=== PATIENT | female | born 1950 | race Caucasian/White ===

== ENCOUNTER 2025-01-10 22:06 | Inpatient (IN) | payer OTHER, SELFPAY ==
[2025-01-10] VITALS (7 sets, daily range): BP systolic 111–152; BP diastolic 66–93; PULSE 81–93; BMI 19.6; BMI 18.9
[2025-01-10 14:00] LABS: Hematocrit 36.1 % (37.0-47.0); Hemoglobin 11.9 g/dL (12.0-16.0); Mean Corp Hgb Conc. 33.0 g/dL (33.0-37.0); Mean Corpuscular Volume 94.3 fL (81.0-99.0); Nucleated Red Blood Cells % 0 %; Platelet Count 150 10^3/uL (130-400); Red Cell Dist. Width 13.5 % (11.5-14.5)
[2025-01-10 14:14] LABS: INR 0.90; PT 12.7 Sec (11.4-14.6)
[2025-01-10 14:25] LABS: ALT (SGPT) 84 U/L (0-35); AST (SGOT) 104 U/L (14-36); Albumin 4.3 g/dl (3.5-5.0); Alkaline Phosphatase 112 U/L (38-126); Blood Urea Nitrogen 16 mg/dl (7-17); Calcium 9.1 mg/dl (8.4-10.2); Carbon Dioxide 25 mmol/L (22-30); Chloride 106 mmol/L (98-107); Glucose 194 mg/dl (70-99); Potassium 4.2 mmol/L (3.5-5.1); Sodium 139 mmol/L (135-145); Total Protein 9.0 g/dl (6.3-8.2); eGFR > 60.00
--- NOTE | 2025-01-10 16:45 | ED.GENMED ---
History of Present Illness
General
Chief Complaint: Rectal Bleeding
Source: patient
Exam Limitations: none
Time Seen by Provider: 01/10/25 16:05
History of Present Illness
History of Present Illness:
74yoF with a history of hypertension and rectal cancer in 2019 s/p chemo/radiation presenting for evaluation of rectal bleeding x 3 days. Patient reports passing bright red blood per rectum with 'dark cranberry clots' for the past several days.
Last episode of bleeding was around 1 AM this morning. She also has been experiencing generalized weakness and fatigue. She reports some mild right-sided abdominal but denies any overt pain. No dizziness, syncope, shortness of breath. She does
not take any blood thinners. Last colonoscopy was in 2019.
Past History
Past History
ED Past Medical History: Other (Breast cancer in 1990 with lumpectomy radiation chemotherapy, cataract surgery, previous oral surgery with removal of her teeth.)
Social History
Tobacco: Smoker
Alcohol: Occasional
Family History
Family History: Other (mother with uterine cancer father with IN)
Phy Exam
General Physical Exam
General Presentation: well appearing and no apparent distress
General Skin: warm and dry
General Habitus: normal and elderly
General Mental: alert
ENT Exam
ENT Exam: normocephalic
Cardiovascular Exam
Cardiovascular Exam: regular rate/rhythm
Pulmonary Exam
Pulmonary Exam: lungs clear, no respiratory distress, no rales, no crackles, no rhonchi and no wheezing
Gastrointestinal Exam
Gastrointestinal Exam: soft, non distended and other (Mild right-sided abdominal tenderness)
Stool: maroon and other (Stool maroon-colored. Heme positive.)
Neurological Exam
Neurological Exam: alert
Hutchinson Coma Scale
Eye Opening: Spontaneous
Verbal Response: Oriented
Motor Response: Obeys Commands
GCS Total Score: 15
Skin Exam
Skin Exam: normal color and warm/dry
Psychiatric Exam
Psychiatric Exam: normal mood/affect
Course
Orders/Labs/Results
Orders:
Orders
01/10/25 13:54
Type And Crossmatch [Type+Screen] Urgent
Complete Blood Count/With Diff Urgent
Comprehensive Metabolic Panel Urgent
Prothrombin Time Urgent
01/10/25 Dinner
Clear Liquid
At Your Request: Full Participation
01/10/25 16:45
CT Abd/pel W Iv And Oral Contr Urgent
Comment:
Reason For Exam: R sided abd pain, rectal bleeding
Iohexol [Omnipaque] See Protocol PO NOW STA
01/10/25 17:31
ABO2 Urgent
BBK Wristband Number:
Associate notified that ABO2 has been ordered: Y
Date: 01/10/25
Time: 14:03
Production Support Manager ID: [id number]
Lactate Level [Lactic Acid] Urgent
01/10/25 21:41
Admit/Transfer Patient As Directed
Co-Sign Provider:
Level of Care: Inpatient admission
Assign to:: Telemetry
Physician / Group: Bran
Diagnosis: Rectal bleeding
Reason for Telemetry: Other
Other Reason for Telemetry: GI bleed
Date to Stop Telemetry: 01/12/25
Time to Stop Telemetry: 11:00
Reason for Hospitalization: rectal bleeding
Expected length of stay greater than two midnights?: Yes
ELOS- Estimated Length of Stay in days: 2
I certify the patient meets the requirements for IP care: Yes
PRN Pain Medication Management As Directed
May give lesser potent ordered pain med per pt: Yes
preference::
Protocol:: Medication orders for pain may be administered in a
manner that supports deferring to patient preference
when the pt is:
- Requesting an ordered lesser potent pain medication.
Least to most potent pain medications are defined
as: acetaminophen < NSAID < tramadol < opioids
(morphine, oxycodone, hydromorphone).
- Requesting a lesser dose of the same medication IF
ORDERED.
- Requesting a less intrusive route of administration
if both routes are prescribed by the provider (PO <
IV).
01/10/25 21:42
Code Status As Directed
Resuscitation Status: Full Code
01/10/25 22:55
Acetaminophen [Tylenol] 650 mg PO Q6HPRN PRN
Dextrose 5%/0.45%Sodchl 1000ML [D5/0.45%NaCl] 1,000 ml IV 75 mls/hr
Ondansetron Injectable [Zofran] 4 mg IV Q6HPRN PRN
01/10/25 22:55
MRI Abdomen [MR Abdomen W/o & W Contrast] Routine
Comment:
Reason For Exam: liver mass evalaution
Recent pill cam endoscopy?: No
Activity As Directed
Activity Level: With Assistance
INT (Intravenous Needle Therapy) As Directed
Comment: Place 2 IV catheters of the largest bore possible until stable
Orthostatic Vital Signs As Directed
Orthostatic VS Frequency: Now
Comment: then every four hours for twenty-four hours
Pneumatic Compression Sleeves As Directed
Type: Knee high
Vital Signs As Directed
Frequency: Per unit guidelines
DX Deep Vein Thrombosis Video Routine
01/11/25 06:00
AFP Male/Tumor Marker IN AM
Basic Metabolic Panel IN AM
CA 19-9 [S] IN AM
CEA IN AM
Complete Blood Count/No Diff IN AM
Prothrombin Time IN AM
01/11/25 14:00
H&H Q8H
01/12/25 11:00
DC Protocol for Telemetry ONCE
Abnormal Lab Results
01/10/25
13:54
RBC 3.83 L 10^6/uL
(4.20-5.40)
Hgb 11.9 L g/dL
(12.0-16.0)
Hct 36.1 L %
(37.0-47.0)
MCH 31.1 H pg
(27.0-31.0)
Absolute Lymphs (auto) 1.0 L 10^3/uL
(1.2-3.4)
Lymphocytes % 16.8 L %
(20.5-51.1)
Glucose 194 H mg/dl
(70-99)
AST 104 H U/L
(14-36)
ALT 84 H U/L
(0-35)
Total Protein 9.0 H g/dl
(6.3-8.2)
01/10/25 13:54
01/10/25 13:54
Vital Signs
Initial and Last Documented VS:
Initial Vital Signs
Temp Pulse Resp BP Pulse Ox
98.5 F 111 16 152/93 98
01/10/25 13:43 01/10/25 13:43 01/10/25 13:43 01/10/25 13:43 01/10/25 13:43
Last Documented Vital Signs
Temp Pulse Resp BP Pulse Ox
98.6 F 81 14 123/71 94
01/10/25 23:36 01/10/25 23:36 01/10/25 23:36 01/10/25 23:36 01/10/25 23:36
MDM/Problems Addressed
Differential Diagnosis Includes:
74yoF here with rectal bleeding x 2 days. C/o generalized weakness. Hx of rectal cancer >5 years ago in remission. No blood thinners. HR 111 in triage. She is non-toxic appearing. Stool is maroon colored on exam and hemoccult positive. Differential
diagnosis includes but is not limited to: Hemorrhoidal bleed, diverticular bleed, malignancy, blood loss anemia
Initial ED plan: Labs obtained in triage. Hemoglobin mildly low at 11.9. Mild transaminitis noted which is consistent with prior labs. Will check lactate and CT abdomen.
*Pulse Oximetry
SaO2: 98
Oxygen Mode of Delivery: Room air
Patient hypoxic: no (98%)
*Critical Care Note
Total Time (30-74mins, 75-104mins- exclusive of procedures): Not Applicable
Update Note
Update Note:
CT shows liver lesions highly concerning for malignancy. There is wall thickening in the lower rectum which may be sequelae of prior radiation although new rectal mass is possible. Patient admitted for further evaluation and management.
ED Attending Note
-
Portions of this chart may have been created with voice recognition software.� Occasional wrong word or��sound alike� substitutions may have occurred due to the inherent limitations of voice recognition software.
Discharge Plan
Departure
Patient Disposition: Admit
Date of Disposition: 01/10/25
Time of Disposition: 21:17
Presentation/result/management discussed w/ accepting MD/DO: Hospitalist
Discharge Problem:
Rectal bleeding, Lesion of liver
Interventions
Interventions:
*Risk Screen - Suicide Last Done: 01/10/25 13:43
*General Assessment Last Done: 01/10/25 13:43
*Neglect/Abuse Screening Last Done: 01/10/25 13:43
*ED- Fall Risk Assessment Last Done: 01/10/25 13:43
*ED COVID-19 Vaccine History Last Done: 01/10/25 13:43
*Nursing Disposition Last Done: 01/10/25 23:15
HQ-Icamzb-Iezluqycsb Assessment Last Done: 01/10/25 17:12
ED- Cardiac Assessment Last Done: 01/10/25 17:12
ED- Pulmonary Assessment Last Done: 01/10/25 17:12
Discharge Date and Time
Discharge Date/Time: 01/10/25 23:15
[2025-01-10] MEDS: OMNIPAQUE 50 ML PO (16:59)
--- NOTE | 2025-01-10 21:20 | HPS.HSE ---
Family Physician
-
Family Physician: Dante Sifuentes MD
Chief Complaint
-
Rectal bleeding
History of Present Illness
This is a 74-year-old female who has a past medical history of hypertension, history of breast cancer status post lumpectomy, anal cancer status post chemo and chemoradiation who presents to the emergency department with episodes of bleeding per
rectum for the last 3 days.
Patient reported that she had episode of feeling bloated on Wednesday. And then had uncontrolled bowel movement which she was blood and large amounts of clots without any actual stool. Since then she says she reports she had 2 regular bowel movements
and pain at around 1 AM today she had a second episode of feeling bloated and then having uncontrolled bowel movement that was again bloody with large amount of clots. She has not had another episode since then. She denied having any pain
associated with his bowel movement. She is not having any abdominal pain nausea or vomiting. She has not had any recent diarrhea.
Patient denies feeling lightheaded or dizzy. She denies having any chest pain or palpitations. She denies any shortness of breath. She is not on any blood thinners and does not take any aspirin. She reports that she has some mild right-sided
abdominal pain. She also reports some generalized weakness and fatigue. She denies night sweats. She denies any weight loss.
She reports last colonoscopy was in 2019.
In the ED a blood pressure was 120/77, pulse rate of 81 and she was satting 98% on room air.
Hemoglobin was 11.9 with a normal platelet count. INR was normal. Electrolytes and BUN/creatinine were normal. AST was slightly elevated at 104 ALT 84. Bilirubin was normal.
CT abdomen and pelvis showing:
There are lesions within the liver measuring up to 5.9 cm in the inferior right hepatic lobe. There is an apparent mildly ill-defined lesion in the hepatic hilum which extends into the left portal vein. There is likely high-grade stenosis of the
right portal vein. These findings may represent metastasis although cholangiocarcinoma or hepatocellular carcinoma can appear similar. Consider dedicated abdominal MRI for further evaluation.
There is eccentric wall thickening along the lower rectum which may be sequelae of prior radiation although a new or recurrent rectal mass is possible. Consider colonoscopy for further evaluation.
Medical History
Past Medical History
Past Medical History: Reports Cancer (Rectal cancer status post chemo and radiation, history of breast cancer) and HTN
Past Surgical History: Reports Other
Social History
Tobacco: Non-smoker
Alcohol: None
Drug: None
Family History
Family History: Not pertinent
Allergies / Home Medications
Allergies reflects when Allergies were last updated in [employer].
Home Medications with original date entered in [employer]
Allergy/Medication List:
Allergies
Allergy/AdvReac Type Severity Reaction Status Date / Time
No Known Allergies Allergy Unverified 01/16/22 11:38
Home Medications
amlodipine 10 mg tablet (Norvasc) 10 mg PO DAILY 01/10/25
Review of Systems
-
Constitutional: Reports No Symptoms
EENT: Reports No Symptoms
Respiratory: Reports No Symptoms
Cardiac: Reports No Symptoms
Abdomen/GI: Reports Bloody Stools
: Reports No Symptoms
Musculoskeletal: Reports No Symptoms
Skin: Reports No Symptoms
Neurological: Reports No Symptoms
Endocrine: Reports No Symptoms
Hematologic/Lymphatic: Reports No Symptoms
Psych: Reports No Symptoms
Physical Exam
Vital Signs
Vital Signs
Temp Pulse Resp BP Pulse Ox
98.5 F 81 22 120/77 98
01/10/25 13:43 01/10/25 18:30 01/10/25 18:30 01/10/25 18:00 01/10/25 16:47
Physical Exam
General: Well Developed, Well Nourished and No Apparent Distress
HEENT: NormoCephalic, Moist mucous membranes and Atraumatic
Respiratory: Clear and Other (Left-sided Port-A-Cath)
Cardiac: S1/S2 and Regular Rhythm; No Murmur or Rub
GI: Soft, Non Tender, Non Distended and Normal Bowel Sounds; No Organomegaly
Rectal: Hem Positive and Maroon Stools
Musculoskeletal: No Clubbing, No Cyanosis and No Edema
Skin: No Rash
Neuro: AO x 3 and Nonfocal/grossly intact
Psych: Anxious
Laboratory Results
-
01/10/25 13:54
01/10/25 13:54
Laboratory Results
PT 12.7 Sec (11.4-14.6) 01/10/25 13:54
INR 0.90 01/10/25 13:54
Lactic Acid 0.9 mmol/L (0.7-2.0) 01/10/25 17:31
Total Bilirubin 0.9 mg/dl (0.2-1.3) 01/10/25 13:54
AST 104 U/L (14-36) H 01/10/25 13:54
ALT 84 U/L (0-35) H 01/10/25 13:54
Alkaline Phosphatase 112 U/L (38-126) 01/10/25 13:54
Data Reviewed
-
CT Scan: Report Reviewed by me
Lab Data: Labs Reviewed by me
Old Records: Reviewed
Impression/Plan
-
IMPRESSION:
74-year-old with history of hypertension and anal cancer status post chemotherapy and radiation in 2019 coming in with multiple episodes of bright red blood per rectum. History of bright red blood mixed with clots and associated with incontinence.
She has no diarrhea abdominal pain nausea or vomiting. She is afebrile. Hemoglobin is stable at 11.9, she has normal INR and she is not on any thinners. Her electrolytes BUN and creatinine were normal. She has slight elevation in AST and ALT.
Imaging is concerning for liver lesion of about 5.9 cm in the inferior right hepatic lobe. There is an apparent mild ill-defined lesion in the hepatic ileum which extends into the left portal vein and there is likely a stenosis of the right portal
vein. Cannot rule out a portal vein thrombosis given concern for malignancy.
PLAN:
Lower GI bleed/liver mass -high suspicion for cancer induced rectal bleeding but cannot rule out diverticular bleed. HD stable.
- admit to telemetry
- type and screen, H&H q 12 hours, transfuse for Hgb < 8
- clear liquid diet for now
- no thinners
- possible liver mass/mets -> obtain cea, afp and ca 19 -9
- mri abdomen
- GI Consultation
DVT PPX - SCDs
Code status - Full Code
--- NOTE | 2025-01-10 23:02 | VATNOTE ---
NOTED MD ORDER FOR TWO LARGE BORE IVS UNTIL STABLE. PT CURRENTLY STABLE ABD HAS A ACCESSSED SUBQ POWER PORT. PT WITH NO NEED FOR ADDITIONAL IV SITES WITH CURRENT IV THERAPY ORDERED.
[2025-01-10] MEDS: D5/0.45%NACL 1000 IV (23:21)
[2025-01-11] VITALS (10 sets, daily range): BP systolic 110–145; BP diastolic 66–78; PULSE 72–97; BMI 18.9
[2025-01-11 06:36] LABS: Hematocrit 27.8 % (37.0-47.0); Hemoglobin 9.3 g/dL (12.0-16.0); Mean Corp Hgb Conc. 33.5 g/dL (33.0-37.0); Mean Corpuscular Volume 93.3 fL (81.0-99.0); Platelet Count 96 10^3/uL (130-400); Red Cell Dist. Width 13.3 % (11.5-14.5)
[2025-01-11 06:43] LABS: INR 1.00; PT 13.7 Sec (11.4-14.6)
[2025-01-11 06:54] LABS: Blood Urea Nitrogen 11 mg/dl (7-17); Calcium 8.0 mg/dl (8.4-10.2); Carbon Dioxide 25 mmol/L (22-30); Chloride 108 mmol/L (98-107); Estimated Creatinine Clearance 75 ml/min; Glucose 109 mg/dl (70-99); Potassium 3.9 mmol/L (3.5-5.1); Sodium 137 mmol/L (135-145); eGFR > 60.00
[2025-01-11 07:53] LABS: CEA 2.10 ng/ml
--- NOTE | 2025-01-11 10:17 | W.PN.HOSP.TC ---
Today's Communication/Plan
-
Trend hemoglobin
Colorectal surgery consult
Oncology consult
Assessment / Plan
Assessment / Plan
Gen-AAOx3, NAD
HEENT-NC, AT, anicteric, clear oral mm
Neck-supple
CV-reg, no M, +S1/S2
Lungs-clear B/L
Abd-soft, NT, ND
Ext-no edema
Musculoskeletal-no cyanosis, clubbing
Skin-warm and dry
Neuro-grossly non-focal
Psych-calm, cooperative
Acute lower GI bleed -concern for recurrence of rectal cancer. No further bleeding in the hospital. Hemodynamically stable. Not on anticoagulants.
Last colonoscopy was February 2019. This showed an anal mass that appeared malignant. Colon polyps. Diverticulosis.
Consult colorectal surgery.
Acute blood loss anemia -due to GI bleed. Will trend hemoglobin. No history of blood transfusions per patient.
Pancytopenia -leukopenia and thrombocytopenia appear to be chronic. Unclear etiology. Monitor for now.
History of rectal cancer -diagnosed 2018. Treated with radiation, chemotherapy. Concern for recurrence given presentation with lower GI bleed and anemia.
New liver lesions noted on CT, MRI pending. Mild transaminase elevation noted.
Last PET scan was April 2022, no evidence of recurrence. She states she last saw Dr. Waddell in June of this year.
Essential hypertension -amlodipine.
Full code
Anticipated Discharge: > 48 hours
Subjective/Interval History
-
Date of Service: January 11, 2025
Patient seen and examined, no complaints. Denies bleeding or pain.
Objective Data
-
Labs:
Laboratory Results
01/11/25 01/11/25 01/11/25
06:12 06:13 14:00
WBC 3.0 L
Hgb 9.3 L D Pending
Hct 27.8 L Pending
Plt Count 96 L D
PT 13.7
INR 1.00
Sodium 137
Potassium 3.9
Chloride 108 H
Carbon Dioxide 25
BUN 11
Creatinine 0.6
Glucose 109 H
Calcium 8.0 L
Vital Signs:
Vital Signs
Temp Pulse Resp BP Pulse Ox
98.0 F 71 16 139/77 100
01/11/25 07:37 01/11/25 07:37 01/11/25 07:37 01/11/25 07:37 01/11/25 07:37
Review of Systems
-
History Source: Patient
All other systems: Reviewed and negative
--- NOTE | 2025-01-11 11:03 | CON.ONC ---
Documented by User: FRANCIS Silva 01/11/25 11:33
Consultation
-
Date Consultation Requested: 01/11/25
Date Consultation Performed: 01/11/25
Requesting Provider: Dr. Garett Wren
Performing Provider: Dr. Marshall Ramirez
Reason for Consultation: Hx rectal cancer
Impression
Impression
locally advanced rectal cancer treated with chemo/radiation 2019, however, did not complete XRT due to toxicity
liver lesions measuring up to 5.9cm
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
eccentric lower rectal wall thickening of unclear significance
1.1 cm hypodense lesion within the pancreatic body
p/w BRBPR
leukopenia
thrombocytopenia at baseline
AST/ALT at baseline
Plan
Plan
f/u AFP, Ca 19.9, CEA
f/u MRI abdomen -depending on results will determine biopsy
check iron studies, b12, folate
follow up colorectal surgery consult
OP follow up will be arranged upon discharge with Dr. Waddell
Patient History
History of Present Illness
74yo F who presented with rectal bleeding. She reports intermittent rectal bleeding for the past 3 days which prompted her to seek further evaluation. She had some bloating on Wednesday then she passed blood and clots with no stool. She did have about
2 regular BMs following BRBPR, however, she again passed a large amount of blood with clots but no stool. She denies n/v or abdominal pain associated with her bowel moments. Her initial evaluation was notable for Hgb 11.9g/dL with normal WBC,
platelet count, coags, renal function. Her LFTs showed AST 104, ALT 84 with a normal bilirubin. She underwent a CT ab/pelvis that showed lesions within the liver measuring up to 5.9 cm in the inferior right hepatic lobe. There is an apparent mildly
ill-defined lesion in the hepatic hilum which extends into the left portal vein. There is likely high-grade stenosis of the right portal vein.
In brief, she is known to Dr. Waddell for management of her rectal cancer. She presented to September 2018 with weight loss, rectal bleeding, and stool changes. Her evaluation was notable for a palpable mass in her anus. CT imaging showed a large
mass involving the rectum with pathologic perirectal and RP lymphadenopathy but no liver metastasis. MRI at that time showed a benign pancreatic lesion. Biopsy with Dr. Smallwood was diagnostic for poorly differentiated carcinoma with squamous
differentiation. She was treated with combine modality radiation and chemotherapy with 5FU and mitomycin. She was unable to finish the full course of radiation due to toxicity, with last dose in April 2019. She declined addition systemic
chemotherapy in early 2019 due to toxicity from chemo/XRT. Her most recent PET in April 2022 showed no evidence of disease. She did not follow through on addition imaging for restaging or follow up with colorectal surgery. She decline Mediport
removal. She has chronic elevations noted in her AST/ALT since at least December 2021. She also has chronic thrombocytopenia with range 90-100,000.
Clinically, she denies fever, chills, cough, sob, javed, chest pain, palpatations, dizziness, headache, or lightheadedness. She does not take any antiplatelet or NSAIDs. She denies any unintentional weight loss or changes in appetite.
Past-Medical/Surgical History
PMH Breast�cancer,�treated�with�lumpectomy,�chemotherapy,�and�radiation�therapy�at[facility]in�1990 Hypertension Cataracts
[facility] Breast�lumpectomy�1990 Cataract�2013 Oral�Surgery�201
Social Patient�is�.�Patient�reports�on�average�1�drinks�per�day�of�alcohol/beer.�[employer]
Family Mother�has�a�history�of�Uteran.� Patient�has�a�family�history�of�Bladder�Grandmother.�Father�Hypertension
Patient Medication
�Medication �Instructions �Recorded �Confirmed �Last Taken �Type
amlodipine 10 mg tablet (Norvasc) 10 mg PO DAILY 01/10/25 01/10/25 01/10/25 History
Active Medications
Generic Name Dose Route Start Last Admin
Trade Name Freq PRN Reason Stop Dose Admin
Acetaminophen 650 mg 01/10/25 22:55
Acetaminophen 325 Mg Tablet PO 02/07/25 22:54
Q6HPRN PRN
mild pain/ fever>100.5F
Amlodipine Besylate 10 mg 01/11/25 11:00
Amlodipine 10 Mg Tablet PO 02/08/25 10:59
DAILY TIMOTHY
Dextrose/Sodium Chloride 1,000 mls @ 75 mls/hr 01/10/25 22:55 01/10/25 23:21
D5/0.45%Nacl IV 1,000 mls
.[id number] TIMOTHY Administration
Ondansetron HCl 4 mg 01/10/25 22:55
Ondansetron 4 Mg/2 Ml Vial IV 02/07/25 22:54
Q6HPRN PRN
NAUSEA/VOMITING
Sodium Chloride 0 flush 01/10/25 23:00
Sodium Chloride 0.9% (Flush) Syringe IV 02/07/25 22:59
PER PROTOCOL TIMOTHY
Review of Systems
-
ROS is notable for HPI, otherwise negative
Physical Exam
-
General: No Apparent Distress
HEENT: Moist Mucous Membranes; Negative Jaundice
Cardiology: Normal Sinus Rhythm
Pulmonary: Clear
GI: Soft; Negative Distended
Extremities: Pulses Present; Negative Edema
Neurology: Non Focal
Skin: Warm and Other (chest mediport)
Labs
Lab Results
WBC 3.0 10^3/uL (4.8-10.8) L 01/11/25 06:13
RBC 2.98 10^6/uL (4.20-5.40) L 01/11/25 06:13
Hgb 9.3 g/dL (12.0-16.0) L D 01/11/25 06:13
Hct 27.8 % (37.0-47.0) L 01/11/25 06:13
MCV 93.3 fL (81.0-99.0) 01/11/25 06:13
MCH 31.2 pg (27.0-31.0) H 01/11/25 06:13
MCHC 33.5 g/dL (33.0-37.0) 01/11/25 06:13
RDW 13.3 % (11.5-14.5) 01/11/25 06:13
Plt Count 96 10^3/uL (130-400) L D 01/11/25 06:13
MPV 10.6 fL (7.4-10.4) H 01/11/25 06:13
Abs Immat Gran (auto) 0.0 10^3/uL (0-0.05) 01/10/25 13:54
Absolute Neuts (auto) 4.3 10^3/uL (1.4-6.5) 01/10/25 13:54
Absolute Lymphs (auto) 1.0 10^3/uL (1.2-3.4) L 01/10/25 13:54
Absolute Monos (auto) 0.5 10^3/uL (0.1-0.6) 01/10/25 13:54
Absolute Eos (auto) 0.1 10^3/uL (0-0.7) 01/10/25 13:54
Absolute Basos (auto) 0.1 10^3/uL (0-0.2) 01/10/25 13:54
Immature Gran % 0.3 % (0-0.5) 01/10/25 13:54
Neutrophils % 72.4 % (42.2-75.2) 01/10/25 13:54
Lymphocytes % 16.8 % (20.5-51.1) L 01/10/25 13:54
Monocytes % 8.7 % (1.7-9.3) 01/10/25 13:54
Eosinophils % 1.0 % (0-6) 01/10/25 13:54
Basophils % 0.8 % (0-2) 01/10/25 13:54
Creatinine 0.6 mg/dL (0.6-1.0) 01/11/25 06:12
Vital Signs
Vital Signs
Temp Pulse Resp BP Pulse Ox
98.0 F 71 16 139/77 100
01/11/25 07:37 01/11/25 07:37 01/11/25 07:37 01/11/25 07:37 01/11/25 07:37

Documented by User: Travis Ramirez, 01/11/25 11:40
Impression
Impression
locally advanced anal cancer treated with chemo/radiation 2019, however, did not complete XRT due to toxicity
liver lesions measuring up to 5.9cm
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
eccentric lower rectal wall thickening of unclear significance
1.1 cm hypodense lesion within the pancreatic body
p/w BRBPR
leukopenia
thrombocytopenia at baseline
AST/ALT at baseline
Patient History
History of Present Illness
74yo F who presented with rectal bleeding. She reports intermittent rectal bleeding for the past 3 days which prompted her to seek further evaluation. She had some bloating on Wednesday then she passed blood and clots with no stool. She did have about
2 regular BMs following BRBPR, however, she again passed a large amount of blood with clots but no stool. She denies n/v or abdominal pain associated with her bowel moments. Her initial evaluation was notable for Hgb 11.9g/dL with normal WBC,
platelet count, coags, renal function. Her LFTs showed AST 104, ALT 84 with a normal bilirubin. She underwent a CT ab/pelvis that showed lesions within the liver measuring up to 5.9 cm in the inferior right hepatic lobe. There is an apparent mildly
ill-defined lesion in the hepatic hilum which extends into the left portal vein. There is likely high-grade stenosis of the right portal vein.
In brief, she is known to Dr. Waddell for management of her anal cancer. She presented to September 2018 with weight loss, she had breast cancer 2bleeding, and stool changes. Her evaluation was notable for a palpable mass in her anus. CT imaging
showed a large mass involving the rectum with pathologic perirectal and RP lymphadenopathy but no liver metastasis. MRI at that time showed a benign pancreatic lesion. Biopsy with Dr. Smallwood was diagnostic for poorly differentiated carcinoma with
squamous differentiation. She was treated with combine modality radiation and chemotherapy with 5FU and mitomycin. She was unable to finish the full course of radiation due to toxicity, with last dose in April 2019. She declined addition systemic
chemotherapy in early 2019 due to toxicity from chemo/XRT. Her most recent PET in April 2022 showed no evidence of disease. She did not follow through on addition imaging for restaging or follow up with colorectal surgery. She decline Mediport
removal. She has chronic elevations noted in her AST/ALT since at least December 2021. She also has chronic thrombocytopenia with range 90-100,000.
Clinically, she denies fever, chills, cough, sob, javed, chest pain, palpatations, dizziness, headache, or lightheadedness. She does not take any antiplatelet or NSAIDs. She denies any unintentional weight loss or changes in appetite.
[2025-01-11] MEDS: NORVASC 10 MG PO (11:54)
[2025-01-11] MEDS: D5/0.45%NACL 1000 IV (11:57)
[2025-01-11 12:29] LABS: Iron 69 ug/dl (37-170)
[2025-01-11 12:39] LABS: Total Iron Binding Capacity 355 ug/dl (265-497)
[2025-01-11 13:09] LABS: Folate 7.1 ng/ml (2.76-20); Vitamin B12 414 pg/ml (239-931)
[2025-01-11 14:25] LABS: Ferritin 174.0 ng/ml (11.1-264.0)
--- NOTE | 2025-01-11 14:42 | CON.CRS ---
Consultation
-
Date/Time Consultation Requested: 01/11/2025, 10:16
Date/Time Consultation Performed: 01/11/2025, 15:00
Requesting Provider: Garett Wren MD
Performing Provider: Jovanni Smallwood MD
Reason for Consultation: anal cancer
Medical History
-
Chief Complaint: rectal bleeding
History of Present Illness:
74-year-old female, with a past medical history of anal cancer status post chemoradiation presents to the emergency department with bright red blood per rectum for the past 3 days. The patient had initially been diagnosed with anal cancer in September
2018 by [facility] after developing weight loss, rectal bleeding, and stool changes. There was a palpable mass in her anus and a CT showed a large mass involving the rectum with a pathological perirectal and lymphadenopathy with no liver
metastasis. An MRI showed a benign pancreatic lesion. A biopsy was performed by Dr. Smallwood which showed poorly differentiated carcinoma with squamous differentiation. She was treated with radiation and chemotherapy with 5-FU and mitomycin. She
did not complete full radiation due to toxicity. Her last dose was in April 2019. She then declined chemotherapy early 2019 due to toxicity from the radiation. She did have a PET scan April 2022 which showed no evidence of disease. She had
a consult with Dr. Smallwood in 2019 but canceled her appointment and did not follow through with colorectal surgery. She had a port placed by Dr. Smallwood on 03/10/2019 and has declined removal since.
She now presents with rectal bleeding and bloating. She has been constipated in the past month off an on, which is new for her. Hemoglobin on admission to the emergency department was 11.9. Her last recorded hemoglobin was in 2022 that was 14.9.
Her hemoglobin is 10.0 today. She did not receive any blood transfusions. Her vital signs have remained normal. CT of the abdomen pelvis shows lesions in the liver measuring 5.9 cm in the inferior right hepatic lobe. There is an mildly
ill-defined lesion in the [place] ileum which extends to the left portal vein. There is a likely high-grade stenosis of the right portal vein. This may represent metastasis although cholangiocarcinoma or hepatocellular carcinoma can appeal or
similar. There is also eccentric wall thickening along the lower rectum which may be sequela of prior radiation or a new or recurrent mass is possible. Consider colonoscopy for further evaluation. There is also a hypodense lesion in the
pancreatic body which may possibly represent a pancreatic lesion or pseudocyst. Given these findings, we have been consulted for further surgical opinion.
Past Medical History
Past Medical History: Other (Rectal cancer status post chemoradiation, history of breast cancer status postlumpectomy, hypertension)
Past Surgical History: Other (Breast lumpectomy 1990, Cataract 2014 Oral Surgery 2011)
Social History
Tobacco: Smoker (3/4 pack per day since teenager)
Alcohol: Daily
Drug: None
Family History
Family History: Reviewed & Not Pertinent
Allergies / Home Medications
Allergy/AdvReac Type Severity Reaction Status Date / Time
No Known Allergies Allergy Unverified 01/16/22 11:38
�Medication �Instructions �Recorded �Confirmed �Type
amlodipine 10 mg tablet (Norvasc) 10 mg PO DAILY 01/10/25 01/10/25 History
Review of Systems
-
A 10 point review of systems was completed, and was negative except as per HPI.
Physical Exam
Vital Signs
Temp 98.5 F 01/11/25 11:25
Pulse 77 01/11/25 11:25
Resp Rate 16 01/11/25 11:25
Blood pressure 117/73 01/11/25 11:25
SaO2 96 01/11/25 11:25
01/10/25 01/11/25 01/12/25
06:59 06:59 06:59
Actual Weight 56.518 kg
Body Mass Index (BMI) 18.9
Lab Results / Allergies
01/11/25 06:12
WBC 3.0 10^3/uL (4.8-10.8) L 01/11/25 06:13
Hgb 9.3 g/dL (12.0-16.0) L D 01/11/25 06:13
Hct 27.8 % (37.0-47.0) L 01/11/25 06:13
Plt Count 96 10^3/uL (130-400) L D 01/11/25 06:13
Abs Immat Gran (auto) 0.0 10^3/uL (0-0.05) 01/10/25 13:54
Neutrophils % 72.4 % (42.2-75.2) 01/10/25 13:54
Allergy/AdvReac Type Severity Reaction Status Date / Time
No Known Allergies Allergy Unverified 01/16/22 11:38
Physical Exam
General: Well Developed, Well Nourished and No Apparent Distress
GI: Soft, Non Tender and Distended (mild/mod)
Rectal: Other (no mass noted, no blood on finger tip)
Neuro: AO x 3
Psych: Calm
Data Reviewed
-
CT Scan: Image Personally Visualized and interpreted, Report Reviewed by me and Discussed with Patient
Labs: Labs Reviewed by me, Discussed with Physician and Discussed with Patient
Old Records: Reviewed
Assessment / Plan
-
Assessment: 74-year-old female with known anal cancer diagnosed in 2019 status post some chemo and radiation, presents to [facility] with bloating and rectal bleeding, found to have likely recurrent disease with liver metastasis on imaging
Plan:
- No plans for urgent surgery at this time
- Tumor markers and CEA pending
- MRI of the abdomen for further examination of the liver is pending
- Hematology and gastroenterology consulted
- Possible IR biopsy of liver per oncology
[2025-01-11 14:50] LABS: Hematocrit 30.0 % (37.0-47.0); Hemoglobin 10.0 g/dL (12.0-16.0)
[2025-01-11 19:24] LABS: AFP Male/Tumor Marker 96.4 ng/ml
[2025-01-11 19:34] LABS: Hepatitis C Antibody Reactive (Negative)
[2025-01-12] VITALS (8 sets, daily range): BP systolic 75–138; BP diastolic 70–78
[2025-01-12] MEDS: D5/0.45%NACL 1000 IV (03:14)
[2025-01-12] MEDS: NORVASC 10 MG PO (07:37)
[2025-01-12 09:31] LABS: Hematocrit 31.6 % (37.0-47.0); Hemoglobin 10.4 g/dL (12.0-16.0); Mean Corp Hgb Conc. 32.9 g/dL (33.0-37.0); Mean Corpuscular Volume 93.8 fL (81.0-99.0); Nucleated Red Blood Cells % 0 %; Platelet Count 113 10^3/uL (130-400); Red Cell Dist. Width 13.3 % (11.5-14.5)
--- NOTE | 2025-01-12 10:04 | W.PN.ONC2 ---
Today's Communication / Plan
-
liver bx
f/u Ca19.9
no objections to discharge, OP follow up will be arranged upon discharge to review pathology and next steps in treatment
Impression
Impression
locally advanced anal cancer treated with chemo/radiation 2019, however, did not complete XRT due to toxicity
liver lesions measuring up to 5.9cm -MRI findings are suspicious for multicentric HCC, less likely metastatic disease or intrahepatic cholangiocarinoma. (LIRADS M). NML AFP, CEA.
tumor thrombus right portal vein as well as the proximal left portal vein and distal main portal vein
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
eccentric lower rectal wall thickening of unclear significance
1.1 cm hypodense lesion within the pancreatic body
p/w BRBPR -no role for iron repletion with ferritin >100
leukopenia
thrombocytopenia at baseline -no B12, folate deficiency
AST/ALT at baseline
Plan
Plan
f/u Ca 19.9
with nml AFP, would pursue liver biopsy
appreciate colorectal surgery input to consider OP colonoscopy
OP follow up will be arranged upon discharge with Dr. Waddell
Subjective/Objective
Subjective
no new complaints
Vital Signs:
Vital Signs
Temp Pulse Resp BP Pulse Ox
97.9 F 74 16 127/73 98
01/12/25 07:42 01/12/25 07:42 01/12/25 07:42 01/12/25 07:42 01/12/25 07:42
Lab Results:
Laboratory Data
WBC 3.4 10^3/uL (4.8-10.8) L 01/12/25 09:04
Hgb 10.4 g/dL (12.0-16.0) L 01/12/25 09:04
Plt Count 113 10^3/uL (130-400) L 01/12/25 09:04
PT 13.7 Sec (11.4-14.6) 01/11/25 06:12
INR 1.00 01/11/25 06:12
eGFR > 60.00 01/11/25 06:12
Physical Exam
General: No Apparent Distress
HEENT: Moist Mucous Membranes; Negative Jaundice
Cardiology: Normal Sinus Rhythm
Pulmonary: Clear
GI: Soft; Negative Distended
Extremities: Pulses Present; Negative Edema
Neurology: Non Focal
Skin: Warm and Other (chest mediport)
Orders
Orders
Orders From Last 24 Hours
01/11/25 11:30
Add On- LAB Routine
--- NOTE | 2025-01-12 10:22 | W.PN.HOSP.TC ---
Today's Communication/Plan
-
Await liver biopsy
Assessment / Plan
Assessment / Plan
Gen-AAOx3, NAD
HEENT-NC, AT, anicteric, clear oral mm
Neck-supple
CV-reg, no M, +S1/S2
Lungs-clear B/L
Abd-soft, NT, ND
Ext-no edema
Musculoskeletal-no cyanosis, clubbing
Skin-warm and dry
Neuro-grossly non-focal
Psych-calm, cooperative
Acute lower GI bleed -concern for recurrence of rectal cancer. No further bleeding in the hospital. Hemodynamically stable. Not on anticoagulants.
Last colonoscopy was February 2019. This showed an anal mass that appeared malignant. Colon polyps. Diverticulosis.
Evaluated by colorectal surgery, recommendation for outpatient follow-up in the office.
Acute blood loss anemia -due to GI bleed. No further bleeding in the hospital. Hemoglobin stable. No history of blood transfusions per patient.
Pancytopenia -leukopenia and thrombocytopenia appear to be chronic. Unclear etiology. Monitor for now.
History of rectal cancer -diagnosed 2018. Treated with radiation, chemotherapy. Concern for recurrence given presentation with lower GI bleed and anemia.
New liver lesions noted on CT, MRI confirms. Mild transaminase elevation noted.
Elevated alpha-fetoprotein, 96.4.
Last PET scan was April 2022, no evidence of recurrence. She states she last saw Dr. Waddell in June of this year.
IR consulted for liver biopsy today. Currently NPO.
Essential hypertension -amlodipine.
Full code
Dispo -likely discharge later today after liver biopsy if okay with consultants.
Anticipated Discharge: Today
Subjective/Interval History
-
Date of Service: January 12, 2025
Patient seen and examined, no complaints. No further bleeding.
Objective Data
-
Labs:
Laboratory Results
01/12/25
09:04
WBC 3.4 L
Hgb 10.4 L
Hct 31.6 L
Plt Count 113 L
Vital Signs:
Vital Signs
Temp Pulse Resp BP Pulse Ox
97.9 F 74 16 127/73 98
01/12/25 07:42 01/12/25 07:42 01/12/25 07:42 01/12/25 07:42 01/12/25 07:42
I&O
01/11/25 01/12/25 01/13/25
06:59 06:59 06:59
Intake Total 780 / 780
Balance 780 / 780
Review of Systems
-
History Source: Patient
All other systems: Reviewed and negative
--- NOTE | 2025-01-12 10:31 | W.DS.TRANS ---
DC Summary - [employer]
-
Discharge Instructions:
Discharge Diagnosis/Procedures Rectal bleeding, anemia, liver lesions
Diet Regular
Activity As tolerated
Driving Restrictions As prior to admission
Bathing Restrictions None
Instructions:
Stand-Alone Forms:
Changes to Home Medications: No
Discharge Medications:
DC Medications w/original date entered in [employer]
amlodipine 10 mg tablet (Norvasc) 10 mg PO DAILY Blood Pressure 01/10/25
Home Medication Changes
Pending Results: No
--- NOTE | 2025-01-12 10:58 | CM ---
IA completed: Alexa lives with her spouse in a 2 story home. Isidra is independent with adl's and ambulation, has no dme in the home.
IMM provided to patient; signed copy placed in chart.
Plan: Discharge to home today with no identified needs.
--- NOTE | 2025-01-12 11:01 | W.PN.CRS1 ---
Today's Communication / Plan
-
no plans for surgery
f/u as an outpatient for colonoscopy
Assessment/Plan
-
Assessment: 74-year-old female with known anal cancer diagnosed in 2019 status post some chemo and radiation, presents to [facility] with bloating and rectal bleeding, found to have likely recurrent disease with liver metastasis on imaging
Plan:
- No plans for urgent surgery at this time
- Tumor markers and CEA pending
- Hematology and gastroenterology consulted
- Possible IR biopsy of liver per oncology
- Follow up as an outpatient with Dr. Smallwood in the office for eventual colonoscopy
Subjective Data
Subjective Data
Date of Service: January 12, 2025
Patient states she feels the same. She has no complaints and no further bleeding.
Objective Data
-
Vital Signs
Temp Pulse Resp BP Pulse Ox
97.9 F 74 16 127/73 98
01/12/25 07:42 01/12/25 07:42 01/12/25 07:42 01/12/25 07:42 01/12/25 07:42
Intake & Output
01/11/25 01/12/25 01/13/25
06:59 06:59 06:59
Intake Total 780 / 780
Balance 780 / 780
Intake:
Oral fluids 780 / 780
Other:
Number of approximated MODERATE 4 3
amounts of urine
Number of approximated LARGE 1
amounts of urine
Lab Results
01/12/25 09:04
01/11/25 06:12
Physical Exam
-
General: No Acute Distress and AOx3
Abdomen: Soft, Non Distended and Non Tender
Skin: Warm and Dry
[2025-01-12 22:30] LABS: CA 19-9 27 U/mL (<=35)
== END 2025-01-12 17:06 | disposition home or self-care (01) | DRG 435 ==
LOC: 3 WEST ACU 22:06
PROVIDERS: Emergency Medicine; Physician Assistant; Radiology Vascular & Interventional Radiology; ADMITTING PHYSICIAN Internal Medicine; ATTENDING PHYSICIAN Hospitalist; EMERGENCY PHYSICIAN Emergency Medicine; FAMILY PHYSICIAN Internal Medicine; OTHER PHYSICIAN Nurse Practitioner Acute Care; OTHER PHYSICIAN Surgery
PROC: 0FB13ZX Excision of Right Lobe Liver, Percutaneous Approach, Diagnostic (ICD-10-PCS; 2025-01-12)
DX: C78.7 Secondary malignant neoplasm of liver and intrahepatic bile duct (principal); I81 Portal vein thrombosis; C21.8 Malignant neoplasm of overlapping sites of rectum, anus and anal canal; K92.2 Gastrointestinal hemorrhage, unspecified; D61.818 Other pancytopenia; D62 Acute posthemorrhagic anemia; Z85.3 Personal history of malignant neoplasm of breast; F17.200 Nicotine dependence, unspecified, uncomplicated; Z92.21 Personal history of antineoplastic chemotherapy; Z92.3 Personal history of irradiation; I10 Essential (primary) hypertension; K86.9 Disease of pancreas, unspecified; Z80.49 Family history of malignant neoplasm of other genital organs; Z82.49 Family history of ischemic heart disease and other diseases of the circulatory system
CPT/HCPCS: 47000; 74177; 74183; 76942; 80048; 80053; 82105; 82378; 82607; 82728; 82746; 83540; 83550; 83605; 85014; 85018; 85025; 85027; 85610; 86301; 86803; 86850; 86900; 86901; 88307; 88333; 88341; 88342; 88360; 99152; 99153; 99285; A9581; Q9967

== ENCOUNTER → 2025-02-12 09:53 | Outpatient (REF) | payer OTHER, SELFPAY | LOC: HWRAD 09:53 | PROVIDERS: ATTENDING PHYSICIAN Internal Medicine Hematology & Oncology; FAMILY PHYSICIAN Internal Medicine | DX: C22.0 Liver cell carcinoma (principal); C21.1 Malignant neoplasm of anal canal | CPT/HCPCS: 76700 ==

== ENCOUNTER → 2025-03-29 13:12 | Outpatient (REF) | payer OTHER, SELFPAY ==
[2025-03-29 13:33] VITALS: BP 139/77; BP_SYST 105
[2025-03-29 14:00] VITALS: BP_SYST 97
[2025-03-29 15:24] LABS: Body Fluid Second Tech BGK
== END ==
LOC: RADI 13:12
PROVIDERS: ATTENDING PHYSICIAN Internal Medicine Hematology & Oncology
DX: R18.8 Other ascites (principal); C22.0 Liver cell carcinoma; Z85.048 Personal history of other malignant neoplasm of rectum, rectosigmoid junction, and anus
CPT/HCPCS: 49083; 89051

== ENCOUNTER → 2025-04-10 07:56 | Outpatient (REF) | payer OTHER, SELFPAY ==
[2025-04-10 08:13] VITALS: BP 161/85; BP_SYST 100
[2025-04-10 08:40] VITALS: BP 152/75; BP_SYST 92
[2025-04-10 10:12] LABS: Body Fluid Second Tech HB
== END ==
LOC: RADI 07:56
PROVIDERS: ATTENDING PHYSICIAN Internal Medicine Hematology & Oncology; FAMILY PHYSICIAN Internal Medicine
DX: R18.8 Other ascites (principal)
CPT/HCPCS: 49083; 89051

== ENCOUNTER → 2025-04-17 09:29 | Outpatient (REF) | payer OTHER, SELFPAY ==
[2025-04-17 09:47] VITALS: BP 129/81; BP_SYST 93
[2025-04-17 10:50] VITALS: BP 127/78; BP_SYST 89
[2025-04-17 11:53] LABS: Body Fluid Second Tech SS
== END ==
LOC: RADI 09:29
PROVIDERS: ATTENDING PHYSICIAN Internal Medicine Hematology & Oncology; FAMILY PHYSICIAN Internal Medicine
DX: R18.8 Other ascites (principal)
CPT/HCPCS: 49083; 89051

== ENCOUNTER → 2025-04-23 13:02 | Outpatient (REF) | payer OTHER, SELFPAY ==
[2025-04-23 13:27] VITALS: BP 110/74; BP_SYST 94
[2025-04-23 17:56] LABS: Body Fluid Second Tech CMC
== END ==
LOC: RADI 13:02
PROVIDERS: ATTENDING PHYSICIAN Internal Medicine Hematology & Oncology; FAMILY PHYSICIAN Internal Medicine
DX: R18.8 Other ascites (principal)
CPT/HCPCS: 49083; 89051

== ENCOUNTER → 2025-04-30 12:53 | Outpatient (REF) | payer OTHER, SELFPAY ==
[2025-04-30 13:05] VITALS: BP 135/75; BP_SYST 87
[2025-04-30 13:33] VITALS: BP 114/74; BP_SYST 82
[2025-04-30 15:58] LABS: Body Fluid Second Tech FB
== END ==
LOC: RADI 12:53
PROVIDERS: ATTENDING PHYSICIAN Internal Medicine Hematology & Oncology
DX: R18.8 Other ascites (principal)
CPT/HCPCS: 49083; 89051

== ENCOUNTER → 2025-05-02 10:30 | Outpatient (REF) | payer OTHER, SELFPAY | LOC: RAD 10:30 | PROVIDERS: ATTENDING PHYSICIAN Internal Medicine Hematology & Oncology; FAMILY PHYSICIAN Internal Medicine | DX: C21.1 Malignant neoplasm of anal canal (principal); I86.8 Varicose veins of other specified sites; C22.0 Liver cell carcinoma; B19.20 Unspecified viral hepatitis C without hepatic coma | CPT/HCPCS: 71260; 74177; Q9967 ==